=== PATIENT | female | born 1965 | race Caucasian/White ===

== ENCOUNTER 2017-10-20 10:43 | Emergency (ER) | payer BC, MEDICARE, OTHER ==
[~2017-10-20] VITALS: Ht 165.1 cm; Wt 82.4 kg
[2017-10-20 10:47] VITALS: BP 112/70
== END 2017-10-20 13:07 | disposition home or self-care (01) ==
LOC: ED 12:24
DX: S33.5XXA Sprain of ligaments of lumbar spine, initial encounter (principal); S09.90XA Unspecified injury of head, initial encounter; W01.0XXA Fall on same level from slipping, tripping and stumbling without subsequent striking against object, initial encounter; Y93.E1 Activity, personal bathing and showering; Y92.89 Other specified places as the place of occurrence of the external cause; Y99.8 Other external cause status
CPT/HCPCS: 70450; 72110; 93005; 99284